=== PATIENT | male | born 1965 | race African-American/Black ===

== ENCOUNTER 2022-12-04 21:05 | Inpatient (IN) | payer MEDICAID ==
[~2022-12-04] VITALS: Ht 175.3 cm; Wt 89.3 kg
[2022-12-04 21:49] LABS: Albumin 3.2 g/dL (3.4-5.0); Calcium 8.5 mg/dL (8.5-10.1); Magnesium 2.4 mg/dL (1.6-2.6)
[2022-12-04 21:52] LABS: Bilirubin, Total 0.2 mg/dL (0.2-1.0); Total Protein 6.7 g/dL (6.4-8.2)
[2022-12-04 21:55] LABS: Basophils # (auto) 0 10 ^3/uL (0-0.2); Basophils % (auto) 0.3 % (0.0-2.0); Eosinophils # (auto) 0.2 10 ^3/uL (0-0.8); Eosinophils % (auto) 2.2 % (0.0-7.0); Hematocrit 46.6 % (41.0-53.0); Hemoglobin 15.5 g/dL (13.5-17.5); Lymphocytes # (auto) 3.2 10 ^3/uL (0.4-5.4); Lymphocytes % (auto) 43.4 % (10.0-50.0); Mean Corpuscular Hemoglobin 29.5 pg (28.0-32.0); Mean Corpuscular Hgb Conc. 33.3 g/dL (32.0-36.0); Mean Corpuscular Volume 88.7 fL (80.0-100.0); Monocytes # (auto) 0.7 10 ^3/uL (0-1.3); Neutrophils # (auto) 3.3 10 ^3/uL (1.6-8.6); Neutrophils % (auto) 45.1 % (37.0-80.0); Nucleated Red Blood Cells % 0.2 %; Red Blood Cells 5.25 10^6/uL (4.5-5.90); Red Cell Distribution Width 15.1 % (11.8-14.3); White Blood Cell 7.4 10^3/uL (4.4-10.8)
[2022-12-04 22:14] LABS: INR 0.93 (0.9-1.15); Partial Thromboplastin Time 26.9 SEC (24.5-34.5); Prothrombin Time 9.8 sec (9.3-11.8)
[2022-12-05] MEDS ORDERED: ACETAMINOPHEN 325 MG TAB PO PRN (03:45)
[2022-12-05] MEDS ORDERED: ONDANSETRON HCL 4 MG/2 ML VIAL IV PRN (03:45)
[2022-12-05] MEDS: MORPHINE SULFATE INJ 2 MG/ml SYRG IV PRN (06:21)
[2022-12-05] MEDS: NITROGLYCERIN 0.4 MG SL TAB SL PRN ×2 (09:12→10:09)
[2022-12-05] MEDS ORDERED: PANTOPRAZOLE 40 MG TAB PO SCH (10:00)
[2022-12-05] MEDS ORDERED: ASPirin 81 mg TAB PO SCH (10:00)
[2022-12-05] MEDS: ENOXAPARIN SOD 40 MG/0.4 ML SYRINGE SC SCH (10:04)
[2022-12-05] MEDS ORDERED: PANTOPRAZOLE 40 MG/10 ML VIAL INJ IV ONE (13:45)
[2022-12-05] MEDS ORDERED: IOHEXOL 350 MG/ML 100ML IJ ONE (14:57)
[2022-12-05 16:37] LABS: Urine Bacteria NONE SEEN /hpf (None Seen); Urine Blood Negative /uL (Negative); Urine Clarity Clear (Clear); Urine Color Colorless (Yellow); Urine Protein, UAD TRACE (Negative); Urine Urobilinogen Normal (Negative); Urine WBC <1 /hpf (0 - 3)
[2022-12-05 16:46] LABS: Urine Specific Gravity > 1.050 (1.001-1.035)
[2022-12-05 16:53] LABS: Alcohol, Urine < 3.0 mg/dL (0-10); Amphetamine Screen, Urine NEGATIVE (NEGATIVE); Barbiturate Scree,Urine NEGATIVE (NEGATIVE); Benzodiazephine Screen, Urine NEGATIVE (NEGATIVE); Cannabinoid Screen, Urine POSITIVE (NEGATIVE); Cocaine Screen, Urine NEGATIVE (NEGATIVE); Opiate Scree,Urine NEGATIVE (NEGATIVE); Phencyclidine Screen, Urine POSITIVE (NEGATIVE)
[2022-12-05] MEDS ORDERED: IBUPROFEN 600 MG TAB PO ONE (17:00)
[2022-12-05] MEDS ORDERED: IOHEXOL 300 MG/ML 100ML BOTTLE IJ ONE (19:23)
[2022-12-05] MEDS ORDERED: SODIUM CHLORIDE 0.9% 1,000 ML IV ONE (19:45)
[2022-12-05 20:00] VITALS: PULSE 82; RESP 14; O2SAT 98
[2022-12-05 20:02] LABS: Erythrocyte Sedimentation Rate 6 mm/hr (0-20)
[2022-12-05] MEDS: IBUPROFEN 800 MG TAB PO SCH (22:23)
[2022-12-06 05:02] LABS: Calcium 8.5 mg/dL (8.5-10.1); Potassium 3.6 mmol/L (3.5-5.1)
[2022-12-06] MEDS: IBUPROFEN 800 MG TAB PO SCH ×4 (06:17→21:15)
[2022-12-06] MEDS: NITROGLYCERIN 0.4 MG SL TAB SL PRN (06:56)
[2022-12-06 08:00] VITALS: PULSE 77; RESP 12; O2SAT 99
[2022-12-06] MEDS ORDERED: PANTOPRAZOLE 40 MG/10 ML VIAL INJ IV SCH (10:00)
[2022-12-06] MEDS: PANTOPRAZOLE 40 MG TAB PO SCH (10:07)
[2022-12-06] MEDS: ENOXAPARIN SOD 40 MG/0.4 ML SYRINGE SC SCH (10:08)
[2022-12-06] MEDS ORDERED: hydrALAZINE HCL 20 MG/ML VL IV ONE (12:00)
[2022-12-06] MEDS ORDERED: hydrALAZINE HCL 20 MG/ML VL IV PRN (12:00)
[2022-12-06 12:59] VITALS: RESP 18; O2SAT 98
[2022-12-06 16:31] VITALS: BP 148/92; PULSE 89; RESP 16; TEMP 98; O2SAT 93
[2022-12-06] MEDS: MORPHINE SULFATE INJ 2 MG/ml SYRG IV PRN (16:41)
[2022-12-06 20:00] VITALS: PULSE 83
[2022-12-06 22:00] VITALS: BP 145/103; PULSE 83; RESP 20; TEMP 97.8; O2SAT 97
[2022-12-07] VITALS (8 sets, daily range): BP systolic 122–147; BP diastolic 91–105; PULSE 75–96; RESP 14–21; TEMP 97.5–98.3; O2SAT 96–100
[2022-12-07] MEDS: MORPHINE SULFATE INJ 2 MG/ml SYRG IV PRN ×2 (00:09→05:51)
[2022-12-07] MEDS: IBUPROFEN 800 MG TAB PO SCH ×4 (05:52→21:32)
[2022-12-07] MEDS ORDERED: fentaNYL CITRATE 100 MCG/2 ML VL IV ONE (09:30)
[2022-12-07] MEDS ORDERED: MIDAZOLAM HCL 2MG/2ML 2ml VIAL (1mg/ml) IV ONE (09:30)
[2022-12-07] MEDS ORDERED: fentaNYL CITRATE 100 MCG/2 ML VL ONE (09:38)
[2022-12-07] MEDS ORDERED: MIDAZOLAM HCL 2MG/2ML 2ml VIAL (1mg/ml) ONE (09:38)
[2022-12-07] MEDS: PANTOPRAZOLE 40 MG TAB PO SCH (09:45)
[2022-12-07] MEDS: ENOXAPARIN SOD 40 MG/0.4 ML SYRINGE SC SCH (09:46)
[2022-12-07] MEDS ORDERED: LIDOCAINE 2% (LOCAL ANESTH.) PF 5ml SDV ONE (09:52)
[2022-12-08] MEDS: HYDROcodone-ACET 5/325MG TAB PO PRN ×2 (02:36→11:51)
[2022-12-08 05:00] VITALS: BP 155/90; PULSE 72; RESP 17; TEMP 98; O2SAT 99
[2022-12-08] MEDS: IBUPROFEN 800 MG TAB PO SCH (05:59)
[2022-12-08] MEDS: MORPHINE SULFATE INJ 2 MG/ml SYRG IV PRN (06:21)
[2022-12-08 08:00] VITALS: PULSE 87
[2022-12-08 08:27] LABS: Calcium 8.8 mg/dL (8.5-10.1); Potassium 4.2 mmol/L (3.5-5.1)
[2022-12-08 08:28] LABS: Basophils # (auto) 0 10 ^3/uL (0-0.2); Basophils % (auto) 0.2 % (0.0-2.0); Eosinophils # (auto) 0.1 10 ^3/uL (0-0.8); Eosinophils % (auto) 1.1 % (0.0-7.0); Hematocrit 50.9 % (41.0-53.0); Hemoglobin 16.7 g/dL (13.5-17.5); Lymphocytes # (auto) 4.5 10 ^3/uL (0.4-5.4); Lymphocytes % (auto) 36.5 % (10.0-50.0); Mean Corpuscular Hgb Conc. 32.8 g/dL (32.0-36.0); Mean Corpuscular Volume 88.4 fL (80.0-100.0); Monocytes # (auto) 0.9 10 ^3/uL (0-1.3); Monocytes % (auto) 7.4 % (0.0-12.0); Neutrophils # (auto) 6.8 10 ^3/uL (1.6-8.6); Neutrophils % (auto) 54.8 % (37.0-80.0); Nucleated Red Blood Cells % 0.3 %; Red Blood Cells 5.76 10^6/uL (4.5-5.90); Red Cell Distribution Width 14.7 % (11.8-14.3); White Blood Cell 12.4 10^3/uL (4.4-10.8)
[2022-12-08 08:30] LABS: BUN/Creatinine Ratio 26.3 (10.0-20.0)
[2022-12-08 09:00] VITALS: BP 137/98; PULSE 90; RESP 18; TEMP 97.8; O2SAT 98
[2022-12-08] MEDS: ENOXAPARIN SOD 40 MG/0.4 ML SYRINGE SC SCH (10:00)
[2022-12-08] MEDS: PANTOPRAZOLE 40 MG TAB PO SCH (10:00)
[2022-12-08 13:09] VITALS: BP 155/90; TEMP 36.6
== END 2022-12-08 13:17 | disposition home or self-care (01) | DRG 207 ==
LOC: ER 21:05 → TELE 12-05 03:48 → TELE-EAST 12-06 13:06
PROVIDERS: ADMIT Internal Medicine; ATTEND Internal Medicine
PROC: 0BBK3ZX Excision of Right Lung, Percutaneous Approach, Diagnostic (ICD-10-PCS; principal; 2022-12-07)
DX: I30.9 Acute pericarditis, unspecified (principal); D18.09 Hemangioma of other sites; F17.210 Nicotine dependence, cigarettes, uncomplicated; F19.10 Other psychoactive substance abuse, uncomplicated; I10 Essential (primary) hypertension; R73.03 Prediabetes; K21.9 Gastro-esophageal reflux disease without esophagitis; J95.811 Postprocedural pneumothorax
CPT/HCPCS: 10005; 36415; 71045; 71250; 71260; 74177; 76705; 77012; 80048; 80053; 80307; 81001; 82105; 83036; 83735; 83880; 84443; 84484; 84550; 85025; 85379; 85610; 85652; 85730; 86141; 93005; 93306; G0378; J2001; J2250